=== PATIENT | female | born 1935 | race African-American/Black ===

== ENCOUNTER 2023-06-27 23:00 | Inpatient (IN) | payer OTHER ==
[2023-06-28 00:35] LABS: BASO % 0.3 % (0-2.0); HEMATOCRIT 32.4 % (32.4-45.2); LYMPH % 5.6 % (8-40); MCH 30.5 pg (25.7-33.7); MCHC 33.9 g/dl (32.0-36.0); MEAN CELL VOLUME 89.9 fl (80-96); MEAN PLT VOLUME 8.8 fl (7.5-11.1); MONO % 8.6 % (3.8-10.2); NEUT % 85.5 % (42.8-82.8); PLATELET COUNT 223 10^3/uL (134-434); RDW 13.3 % (11.6-15.6); WHITE BLOOD COUNT 7.3 K/mm3 (4.0-10.0)
[2023-06-28 00:46] LABS: POTASSIUM 3.4 mmol/L (3.5-5.1)
[2023-06-28 00:47] LABS: CALCIUM 9.3 mg/dL (8.5-10.1)
[2023-06-28 00:48] LABS: ALBUMIN 3.5 g/dl (3.4-5.0)
[2023-06-28] MEDS ORDERED: ACETAMINOPHEN INJECTION 100 ML IVPB ONE (00:49)
[2023-06-28 00:51] LABS: CREATININE 0.7 mg/dL (0.55-1.3)
[2023-06-28 00:52] LABS: BILIRUBIN,TOTAL 0.8 mg/dL (0.2-1); TOT PROT 7.4 g/dl (6.4-8.2)
[2023-06-28] MEDS: ACETAMINOPHEN 1000 MG/100 ML BAG IVPB ONE (01:00)
[2023-06-28] MEDS: SODIUM CHLORIDE 0.9% 500 ML INFUS.BAG IV ONE ×2 (01:00→01:01)
[2023-06-28] MEDS: POTASSIUM CHLORIDE TABS 10 MEQ TABLET.ER (FP) PO ONE (04:09)
[2023-06-28] MEDS: ACETAMINOPHEN 325 MG TABLET (FP) PO PRN (04:09)
[2023-06-28] MEDS: LOSARTAN POTASSIUM 50 MG TABLET PO ONE (04:09)
[2023-06-28] MEDS ORDERED: POTASSIUM CHLORIDE TABS 20 MEQ TABLET.ER (FP) PO ONE (04:10)
[2023-06-28 04:21] LABS: MAGNESIUM 1.4 mg/dL (1.8-2.4)
[2023-06-28] MEDS ORDERED: MAGNESIUM SULFATE IN WATER 2 GM/50 ML IVPB IVPB ONE (05:16)
[2023-06-28] MEDS: MAGNESIUM SULF 50% (8.12 MEQ/2 ML-1 GM VIAL) IVPB ONE (05:23)
[2023-06-28] MEDS ORDERED: ONDANSETRON 4 MG/2 ML VIAL ONE (05:56)
[2023-06-28] MEDS: ONDANSETRON 4 MG/2 ML VIAL IVPUSH PRN (06:00)
[2023-06-28] MEDS: D5-1/2NS+10 MEQ KCL - 10 MEQ/1,000 ML INFUS.BAG IV SCH ×2 (06:52→18:50)
[2023-06-28] MEDS ORDERED: ALBUTEROL SO4 2.5/IPRATROPIUM 0.5 INH SOL 3 ML VIAL.NEB. NEB PRN ×2 (08:45→08:57)
[2023-06-28] MEDS ORDERED: PANTOPRAZOLE SODIUM 40 MG VIAL IVPUSH SCH (10:00)
[2023-06-28] MEDS: POLYETHYLENE GLYCOL (HEALTHYLAX) 3350 17 GM PACKET PO SCH (11:31)
[2023-06-28] MEDS: PANTOPRAZOLE SODIUM 40 MG VIAL IVPUSH SCH (11:32)
[2023-06-28] MEDS: ISOSORBIDE MONONITRATE 20 MG TABLET PO SCH (11:33)
[2023-06-28] MEDS: CILOSTAZOL 100 MG TABLET PO SCH (11:33)
[2023-06-28] MEDS: METOLAZONE 5 MG TABLET PO SCH (11:34)
[2023-06-28] MEDS: LIDOCAINE 5% TOPICAL PATCH TP SCH (11:35)
[2023-06-28] MEDS ORDERED: MAG HYDROX/AL HYDROX/SIMETH 30 ML UNIT-DOSE CUP PO PRN (11:39)
[2023-06-28 14:45] VITALS: BMI 21.6
[2023-06-28] MEDS: LIDOCAINE PATCH REMOVAL MC SCH (21:37)
[2023-06-28] MEDS ORDERED: DOCUSATE SODIUM 100 MG CAPSULE (FP) PO SCH (22:00)
[2023-06-29] MEDS: traMADol HCL 50 MG TABLET PO ONE (04:02)
[2023-06-29 08:00] LABS: BASO % 0.3 % (0-2.0); EOS % 0.5 % (0-4.5); HEMATOCRIT 26.8 % (32.4-45.2); HEMOGLOBIN 8.9 GM/dL (10.7-15.3); LYMPH % 13.4 % (8-40); MCH 30.1 pg (25.7-33.7); MCHC 33.2 g/dl (32.0-36.0); MEAN CELL VOLUME 90.7 fl (80-96); MEAN PLT VOLUME 8.9 fl (7.5-11.1); MONO % 11.4 % (3.8-10.2); NEUT % 74.4 % (42.8-82.8); PLATELET COUNT 190 10^3/uL (134-434); RBC 2.95 M/mm3 (3.60-5.2); RDW 13.1 % (11.6-15.6); WHITE BLOOD COUNT 7.4 K/mm3 (4.0-10.0)
[2023-06-29 08:17] LABS: BLOOD UREA NITROGEN 15.4 mg/dL (7-18)
[2023-06-29 08:18] LABS: CALCIUM 8.2 mg/dL (8.5-10.1); MAGNESIUM 1.6 mg/dL (1.8-2.4)
[2023-06-29 08:20] LABS: CREATININE 0.7 mg/dL (0.55-1.3)
[2023-06-29] MEDS: MAGNESIUM 2GM/50ML STERILE WATER IVPB IVPB ONE (08:45)
[2023-06-29] MEDS: KCL 10 MEQ IVPB 10 MEQ/100 ML INFUS.BAG IVPB SCH (08:52)
[2023-06-29] MEDS: LOSARTAN POTASSIUM 50 MG TABLET PO SCH (10:59)
[2023-06-29] MEDS: traMADol HCL 50 MG TABLET PO PRN (11:27)
[2023-06-29] MEDS: ISOSORBIDE MONONITRATE 20 MG TABLET PO SCH (12:00)
[2023-06-29] MEDS: IRON SUCROSE INJECTION 300 MG in SODIUM CHLORIDE 235 ML IVPB ONE (12:25)
[2023-06-30 09:02] LABS: BASO % 0.4 % (0-2.0); EOS % 1.5 % (0-4.5); HEMATOCRIT 27.9 % (32.4-45.2); HEMOGLOBIN 9.2 GM/dL (10.7-15.3); LYMPH % 14.8 % (8-40); MCH 30.1 pg (25.7-33.7); MCHC 33.1 g/dl (32.0-36.0); MEAN CELL VOLUME 90.8 fl (80-96); MONO % 13.7 % (3.8-10.2); NEUT % 69.6 % (42.8-82.8); PLATELET COUNT 206 10^3/uL (134-434); RBC 3.07 M/mm3 (3.60-5.2); RDW 13.2 % (11.6-15.6)
[2023-06-30 09:20] LABS: POTASSIUM 3.4 mmol/L (3.5-5.1)
[2023-06-30 09:21] LABS: CALCIUM 8.7 mg/dL (8.5-10.1)
[2023-06-30 09:22] LABS: BLOOD UREA NITROGEN 11.6 mg/dL (7-18); MAGNESIUM 1.8 mg/dL (1.8-2.4)
[2023-06-30 09:25] LABS: CREATININE 0.7 mg/dL (0.55-1.3)
[2023-06-30] MEDS: IRON SUCROSE INJECTION 300 MG in SODIUM CHLORIDE 235 ML IVPB ONE (11:14)
[2023-06-30] MEDS: KCL 10 MEQ IVPB 10 MEQ/100 ML INFUS.BAG IVPB SCH (11:16)
[2023-06-30] MEDS: MAGNESIUM 2GM/50ML STERILE WATER IVPB IVPB ONE (12:05)
[2023-07-01 08:23] LABS: BASO % 0.3 % (0-2.0); EOS % 0.1 % (0-4.5); HEMATOCRIT 27.4 % (32.4-45.2); HEMOGLOBIN 8.9 GM/dL (10.7-15.3); LYMPH % 11.2 % (8-40); MCH 29.5 pg (25.7-33.7); MCHC 32.7 g/dl (32.0-36.0); MEAN CELL VOLUME 90.1 fl (80-96); MEAN PLT VOLUME 8.2 fl (7.5-11.1); MONO % 15.6 % (3.8-10.2); NEUT % 72.8 % (42.8-82.8); PLATELET COUNT 235 10^3/uL (134-434); RBC 3.04 M/mm3 (3.60-5.2); RDW 13.2 % (11.6-15.6); WHITE BLOOD COUNT 7.7 K/mm3 (4.0-10.0)
[2023-07-01 08:39] LABS: POTASSIUM 3.2 mmol/L (3.5-5.1)
[2023-07-01 08:40] LABS: BLOOD UREA NITROGEN 10.7 mg/dL (7-18); CALCIUM 8.3 mg/dL (8.5-10.1)
[2023-07-01 08:41] LABS: MAGNESIUM 1.9 mg/dL (1.8-2.4)
[2023-07-01 08:43] LABS: CREATININE 0.6 mg/dL (0.55-1.3)
[2023-07-01] MEDS: PANTOPRAZOLE 40 MG TABLET PO SCH (10:05)
[2023-07-01] MEDS: MAGNESIUM 2GM/50ML STERILE WATER IVPB IVPB ONE (10:29)
[2023-07-01] MEDS: KCL 10 MEQ IVPB 10 MEQ/100 ML INFUS.BAG IVPB SCH (11:49)
[2023-07-01] MEDS: IRON SUCROSE INJECTION 300 MG in SODIUM CHLORIDE 235 ML IVPB ONE (13:02)
[2023-07-02 08:43] LABS: POTASSIUM 3.7 mmol/L (3.5-5.1)
[2023-07-02 08:44] LABS: CALCIUM 8.9 mg/dL (8.5-10.1)
[2023-07-02 08:45] LABS: BLOOD UREA NITROGEN 12.6 mg/dL (7-18)
[2023-07-02 08:48] LABS: BASO % 0.5 % (0-2.0); CREATININE 0.7 mg/dL (0.55-1.3); EOS % 0.2 % (0-4.5); HEMATOCRIT 27.7 % (32.4-45.2); HEMOGLOBIN 9.1 GM/dL (10.7-15.3); LYMPH % 12.3 % (8-40); MCH 29.7 pg (25.7-33.7); MEAN CELL VOLUME 90.1 fl (80-96); MEAN PLT VOLUME 8.3 fl (7.5-11.1); MONO % 17.4 % (3.8-10.2); NEUT % 69.6 % (42.8-82.8); PLATELET COUNT 264 10^3/uL (134-434); RBC 3.07 M/mm3 (3.60-5.2); RDW 12.7 % (11.6-15.6); WHITE BLOOD COUNT 7.4 K/mm3 (4.0-10.0)
[2023-07-02] MEDS: IRON SUCROSE INJECTION 300 MG in SODIUM CHLORIDE 235 ML IVPB ONE (11:23)
[2023-07-02] MEDS: METOPROLOL TARTRATE 5 MG/5 ML VIAL IVPUSH PRN (17:57)
[2023-07-03] MEDS: traMADol HCL 50 MG TABLET PO PRN (06:40)
[2023-07-03 07:50] LABS: BASO % 0.7 % (0-2.0); EOS % 0.8 % (0-4.5); HEMATOCRIT 27.8 % (32.4-45.2); HEMOGLOBIN 9.1 GM/dL (10.7-15.3); LYMPH % 12.1 % (8-40); MCH 29.8 pg (25.7-33.7); MCHC 32.9 g/dl (32.0-36.0); MEAN CELL VOLUME 90.6 fl (80-96); MEAN PLT VOLUME 8.1 fl (7.5-11.1); MONO % 17.6 % (3.8-10.2); NEUT % 68.8 % (42.8-82.8); PLATELET COUNT 320 10^3/uL (134-434); RBC 3.07 M/mm3 (3.60-5.2); WHITE BLOOD COUNT 7.5 K/mm3 (4.0-10.0)
[2023-07-03 07:56] LABS: POTASSIUM 3.8 mmol/L (3.5-5.1)
[2023-07-03 08:03] LABS: CALCIUM 8.8 mg/dL (8.5-10.1)
[2023-07-03 08:04] LABS: BLOOD UREA NITROGEN 15.6 mg/dL (7-18)
[2023-07-03 08:07] LABS: CREATININE 0.8 mg/dL (0.55-1.3)
[2023-07-04 08:51] LABS: BASO % 0.5 % (0-2.0); EOS % 0.9 % (0-4.5); HEMATOCRIT 27.4 % (32.4-45.2); HEMOGLOBIN 9.1 GM/dL (10.7-15.3); LYMPH % 11.4 % (8-40); MCH 29.9 pg (25.7-33.7); MCHC 33.2 g/dl (32.0-36.0); MEAN CELL VOLUME 89.9 fl (80-96); MEAN PLT VOLUME 7.9 fl (7.5-11.1); MONO % 16.9 % (3.8-10.2); NEUT % 70.3 % (42.8-82.8); PLATELET COUNT 369 10^3/uL (134-434); RBC 3.05 M/mm3 (3.60-5.2); RDW 12.9 % (11.6-15.6); WHITE BLOOD COUNT 8.2 K/mm3 (4.0-10.0)
[2023-07-05] MEDS: D5-1/2NS+10 MEQ KCL - 10 MEQ/1,000 ML INFUS.BAG IV SCH ×2 (06:57→12:54)
[2023-07-05 08:31] LABS: BASO % 0.4 % (0-2.0); EOS % 0.6 % (0-4.5); HEMATOCRIT 28.5 % (32.4-45.2); HEMOGLOBIN 9.6 GM/dL (10.7-15.3); LYMPH % 13.1 % (8-40); MCHC 33.7 g/dl (32.0-36.0); MEAN CELL VOLUME 89.2 fl (80-96); MEAN PLT VOLUME 7.8 fl (7.5-11.1); MONO % 15.3 % (3.8-10.2); NEUT % 70.6 % (42.8-82.8); PLATELET COUNT 412 10^3/uL (134-434); WHITE BLOOD COUNT 8.3 K/mm3 (4.0-10.0)
[2023-07-05 08:46] LABS: POTASSIUM 3.4 mmol/L (3.5-5.1)
[2023-07-05 08:47] LABS: CALCIUM 9.3 mg/dL (8.5-10.1)
[2023-07-05 08:48] LABS: BLOOD UREA NITROGEN 22.8 mg/dL (7-18)
[2023-07-05] MEDS: KCL 10 MEQ IVPB 10 MEQ/100 ML INFUS.BAG IVPB SCH (10:32)
[2023-07-05] MEDS: POTASSIUM CHLORIDE 10 MEQ in DEXTROSE 5%-NORMAL SALINE 1,000 ML IVPB SCH ×2 (13:09→14:58)
[2023-07-05 13:19] LABS: MAGNESIUM 1.9 mg/dL (1.8-2.4)
[2023-07-05 13:23] LABS: PHOSPHOROUS 1.8 mg/dL (2.5-4.9)
[2023-07-05] MEDS: MAGNESIUM SULF 50% (8.12 MEQ/2 ML-1 GM VIAL) IVPB ONE (14:21)
[2023-07-05] MEDS: POTASSIUM PHOSPHATE 30 MM in SODIUM CHLORIDE 500 ML IVPB ONE (14:21)
[2023-07-05] MEDS: NAPH,MB-DB/K PH,MBDB POWDER PACKET PO ONE (14:21)
[2023-07-05] MEDS: AMINO ACIDS/PROTEIN HYDROLYS 30 ML LIQUID.PKT PO SCH (18:35)
[2023-07-06 08:11] LABS: POTASSIUM 3.9 mmol/L (3.5-5.1)
[2023-07-06 08:12] LABS: BASO % 0.9 % (0-2.0); HEMOGLOBIN 8.2 GM/dL (10.7-15.3); LYMPH % 13.7 % (8-40); MCH 29.7 pg (25.7-33.7); MCHC 32.9 g/dl (32.0-36.0); MEAN CELL VOLUME 90.4 fl (80-96); MEAN PLT VOLUME 7.8 fl (7.5-11.1); MONO % 13.2 % (3.8-10.2); NEUT % 69.2 % (42.8-82.8); PLATELET COUNT 395 10^3/uL (134-434); RBC 2.77 M/mm3 (3.60-5.2); RDW 13.3 % (11.6-15.6); WHITE BLOOD COUNT 7.7 K/mm3 (4.0-10.0)
[2023-07-06 08:14] LABS: BLOOD UREA NITROGEN 14.5 mg/dL (7-18); MAGNESIUM 1.7 mg/dL (1.8-2.4)
[2023-07-06 08:15] LABS: CALCIUM 8.2 mg/dL (8.5-10.1); INR 1.08 (0.83-1.09); PROTHROMBIN TIME (PATIENT) 12.4 SEC (9.7-13.0)
[2023-07-06 08:17] LABS: CREATININE 0.6 mg/dL (0.55-1.3); PHOSPHOROUS 2.8 mg/dL (2.5-4.9)
[2023-07-06 08:19] LABS: BILIRUBIN,TOTAL 0.5 mg/dL (0.2-1); TOT PROT 5.8 g/dl (6.4-8.2)
[2023-07-06 08:28] LABS: ALBUMIN 2.2 g/dl (3.4-5.0)
[2023-07-06] MEDS: IRON SUCROSE INJECTION 300 MG in SODIUM CHLORIDE 235 ML IVPB ONE (13:00)
[2023-07-06] MEDS: GABAPENTIN 100 MG CAPSULE PO SCH (13:54)
[2023-07-06] MEDS: ARTIFICIAL TEARS OPHTHALMIC DROPS OU SCH (14:14)
[2023-07-06] MEDS: EPOETIN ALFA-EPBX 20,000 UNIT/ML VIAL SQ ONE (17:26)
[2023-07-06] MEDS: MAGNESIUM SULF 50% (8.12 MEQ/2 ML-1 GM VIAL) IVPB ONE ×2 (17:26→17:27)
[2023-07-06] MEDS: PANTOPRAZOLE 40 MG TABLET PO SCH (21:11)
[2023-07-07] MEDS: MAGNESIUM SULF 50% (8.12 MEQ/2 ML-1 GM VIAL) IVPB ONE (10:39)
[2023-07-07] MEDS: IRON SUCROSE INJECTION 300 MG in SODIUM CHLORIDE 235 ML IVPB ONE (11:40)
[2023-07-08 07:40] LABS: POTASSIUM 3.7 mmol/L (3.5-5.1)
[2023-07-08 08:01] LABS: BLOOD UREA NITROGEN 14.4 mg/dL (7-18)
[2023-07-08 08:02] LABS: CALCIUM 8.5 mg/dL (8.5-10.1)
[2023-07-08 08:04] LABS: CREATININE 0.7 mg/dL (0.55-1.3)
[2023-07-08 08:32] LABS: HEMATOCRIT 25.5 % (32.4-45.2); HEMOGLOBIN 8.6 GM/dL (10.7-15.3); MCH 30.5 pg (25.7-33.7); MCHC 33.7 g/dl (32.0-36.0); MEAN CELL VOLUME 90.7 fl (80-96); PLATELET COUNT 429 10^3/uL (134-434); RBC 2.81 M/mm3 (3.60-5.2); RDW 13.5 % (11.6-15.6); WHITE BLOOD COUNT 7.9 K/mm3 (4.0-10.0)
[2023-07-08 09:24] LABS: ANISOCYTOSIS 0; MACROCYTOSIS 0
[2023-07-08] MEDS: EPOETIN ALFA-EPBX 20,000 UNIT/ML VIAL SQ ONE (10:31)
[2023-07-09 08:57] LABS: HEMATOCRIT 26.5 % (32.4-45.2); HEMOGLOBIN 8.8 GM/dL (10.7-15.3); MCH 30.5 pg (25.7-33.7); MCHC 33.2 g/dl (32.0-36.0); MEAN CELL VOLUME 91.6 fl (80-96); MEAN PLT VOLUME 7.2 fl (7.5-11.1); PLATELET COUNT 427 10^3/uL (134-434); RBC 2.89 M/mm3 (3.60-5.2); RDW 13.1 % (11.6-15.6); WHITE BLOOD COUNT 8.2 K/mm3 (4.0-10.0)
[2023-07-09 09:18] LABS: POTASSIUM 3.9 mmol/L (3.5-5.1)
[2023-07-09 09:22] LABS: CALCIUM 8.4 mg/dL (8.5-10.1)
[2023-07-09 09:23] LABS: BLOOD UREA NITROGEN 16.7 mg/dL (7-18); MAGNESIUM 1.6 mg/dL (1.8-2.4)
[2023-07-09 09:26] LABS: CREATININE 0.6 mg/dL (0.55-1.3)
[2023-07-09] MEDS: MULTIVITAMINS (DAILY MVI) TABLET (FP) PO SCH (09:41)
[2023-07-09 10:05] LABS: PLATELET ESTIMATE ADEQUATE
[2023-07-09] MEDS: MAGNESIUM SULF 50% (8.12 MEQ/2 ML-1 GM VIAL) IVPB ONE (10:40)
[2023-07-09] MEDS: MAGNESIUM OXIDE 400 MG TABLET (FP) PO SCH (13:32)
[2023-07-11 08:27] LABS: HEMATOCRIT 27.4 % (32.4-45.2); HEMOGLOBIN 9.3 GM/dL (10.7-15.3); MCH 31.2 pg (25.7-33.7); MCHC 33.9 g/dl (32.0-36.0); MEAN CELL VOLUME 91.8 fl (80-96); PLATELET COUNT 468 10^3/uL (134-434); RBC 2.99 M/mm3 (3.60-5.2); RDW 13.7 % (11.6-15.6); WHITE BLOOD COUNT 8.2 K/mm3 (4.0-10.0)
[2023-07-11 08:39] LABS: POTASSIUM 3.9 mmol/L (3.5-5.1)
[2023-07-11 08:44] LABS: ALBUMIN 2.4 g/dl (3.4-5.0); CALCIUM 8.6 mg/dL (8.5-10.1)
[2023-07-11 08:45] LABS: BLOOD UREA NITROGEN 16.3 mg/dL (7-18); MAGNESIUM 1.7 mg/dL (1.8-2.4)
[2023-07-11 08:48] LABS: BILIRUBIN,TOTAL 0.4 mg/dL (0.2-1); CREATININE 0.6 mg/dL (0.55-1.3); TOT PROT 5.8 g/dl (6.4-8.2)
[2023-07-11 10:20] LABS: ANISOCYTOSIS 0; MACROCYTOSIS 0
[2023-07-11] MEDS: MAGNESIUM 2GM/50ML STERILE WATER IVPB IVPB ONE (10:37)
[2023-07-12 13:54] VITALS: BP 125/67; PULSE 100; RESP 15; TEMP 97.7
[2023-07-12] MEDS ORDERED: LIDOCAINE 4% PATCH TP SCH (14:03)
== END 2023-07-12 14:50 | disposition home or self-care (01) | DRG 380 ==
LOC: JER 23:00 → JERBED 06-28 03:24 → J7W 06-28 08:19 → J6S 07-08 11:23
PROVIDERS: ADMIT Internal Medicine; ATTEND Internal Medicine
PROC: 0DB68ZX Excision of Stomach, Via Natural or Artificial Opening Endoscopic, Diagnostic (ICD-10-PCS; 2023-07-06)
PROC: 0DB58ZX Excision of Esophagus, Via Natural or Artificial Opening Endoscopic, Diagnostic (ICD-10-PCS; 2023-07-06)
PROC: 0DB98ZX Excision of Duodenum, Via Natural or Artificial Opening Endoscopic, Diagnostic (ICD-10-PCS; principal; 2023-07-06 11:30)
DX: K22.10 Ulcer of esophagus without bleeding (principal); K56.2 Volvulus; E87.1 Hypo-osmolality and hyponatremia; K21.00 Gastro-esophageal reflux disease with esophagitis, without bleeding; I25.10 Atherosclerotic heart disease of native coronary artery without angina pectoris; I10 Essential (primary) hypertension; E78.5 Hyperlipidemia, unspecified; M25.561 Pain in right knee; M62.81 Muscle weakness (generalized); J44.9 Chronic obstructive pulmonary disease, unspecified; E83.42 Hypomagnesemia; G56.00 Carpal tunnel syndrome, unspecified upper limb; K21.9 Gastro-esophageal reflux disease without esophagitis; E83.39 Other disorders of phosphorus metabolism; K59.00 Constipation, unspecified; R55 Syncope and collapse; E86.0 Dehydration; R26.81 Unsteadiness on feet; E87.6 Hypokalemia; D50.9 Iron deficiency anemia, unspecified; D72.821 Monocytosis (symptomatic); R63.0 Anorexia; Z68.21 Body mass index [BMI] 21.0-21.9, adult; K76.9 Liver disease, unspecified; F03.90 Unspecified dementia, unspecified severity, without behavioral disturbance, psychotic disturbance, mood disturbance, and anxiety; I35.0 Nonrheumatic aortic (valve) stenosis; E11.9 Type 2 diabetes mellitus without complications; K44.9 Diaphragmatic hernia without obstruction or gangrene; M48.02 Spinal stenosis, cervical region
CPT/HCPCS: 36415; 70450-TC; 71045-TC-FY; 72131-TC; 72170-TC-FY; 73562-TC-RT-FY; 73700-TC-RT; 74176-TC; 80048; 80053; 82272; 82550; 82553; 82728; 83540; 83550; 83735; 84100; 85025; 85610; 86850; 86900; 86901; 88305-TC; 93005; 93010; 93306-TC; 97116-GP; 97161-GP; 99285-25; J0131; J1756